=== PATIENT | female | born 1995 | race Caucasian/White ===

== ENCOUNTER 2024-12-01 19:24 | Emergency (ER) | payer SELFPAY ==
[2024-12-01 19:26] VITALS: BP 130/79; PULSE 83; RESP 16; TEMP 36.2; O2SAT 99; BMI 34.4
--- NOTE | 2024-12-01 19:45 | RAD_ITS ---
PROCEDURE: RIGHT ANKLE MIN 3 VIEWS 12/01/2024 REASON FOR EXAM: INJURY/PAIN TECHNIQUE: Procedure Code: RADANK Modality: DX Procedure: ANKLE MIN 3 VIEWS Laterality: Right COMPARISON: None. FINDINGS: No acute fracture or dislocation. Alignment is anatomic. Preserved joint spaces. No aggressive osseous lesion. Soft tissue swelling about the lateral malleolus suggestive of ankle sprain. RAD/Ankle min 3 Views IMPRESSION: No acute fracture or dislocation. Soft tissue swelling over the lateral malleolus suggesting ankle sprain injury. Reading Location: [id number]
--- NOTE | 2024-12-01 20:56 | EX.ED.DYSGE1 ---
HPI History of Present Illness Chief Complaint: Lower Extremity Injury Detail of Chief Complaint: Plantar inversion mechanism injury right ankle Informant: patient Onset/Context/Timing Onset: Hours (Approximately 1 hour prior to presentation) Context: Sudden Onset Timing: Continuous Quality: Pain Location: Lateral right ankle Current Severity: Mild Maximum Severity: Moderate Worsened by: Palpation and weightbearing Relieved by: Nothing Associated Symptoms Associated Symptoms: Difficulty ambulating Narrative Narrative: Patient is a 29-year-old woman who presents with plantar inversion mechanism of her right ankle. She denies paresthesia, anesthesia motors. Denies toe pain or knee pain. She denies prior injury. Prior similar symptoms: No Recent Illness/Hospitalization: No PFSH PFS Medical History Scoliosis Home Medications ?Medication ?Instructions ?Recorded ?Last Taken ?Type naproxen 500 mg tablet 500 mg PO BID #14 tabs 12/01/24 Unknown Rx Allergy/AdvReac Type Severity Reaction Status Date / Time No Known Allergies Allergy Verified 12/01/24 19:27 Family History no significant family his Surgical History History of back surgery Social History Smoking Status: Never smoker ROS ROS ED Musculoskeletal Musculoskeletal: Reports other Details: Per HPI narrative ; Denies arthralgias, back pain, myalgias or neck pain Neurologic Neurologic: Denies paresthesias or weakness Hematologic/Lymphatic Hematologic/Lymphatic: Reports systems reviewed and no addt'l complaints, except as documented EXAM Physical Exam Const Vital Signs: 12/01/24 19:26 Temperature 97.1 F L Temperature Source Temporal Pulse Rate 83 Respiratory Rate 16 Blood Pressure 130/79 H Blood Pressure Mean 96 Pulse Ox 99 Oxygen Delivery Method Room Air Positive well nourished and well developed General Appearance ED: well developed and NAD; Negative for pallor HEENT HEENT Narrative: Head is normocephalic and atraumatic. Eyes PERRL and EOMs intact bilaterally Resp normal respiratory effort Cardio regular rate and regular rhythm Extremity Negative for normal to inspection Extremity Narrative: There is soft tissue swelling noted laterally. There is pain outpatient posterior distal 3 cm. There is no pain ovation of the medial malleolus or calcaneus. There is no laxity with drawer testing. There is no pain ovation of the base of the fifth metatarsal. DP and PT pulse are palpable. Neuro oriented x3 and CN's II-XII intact bilaterally Sensorium / Orientation: alert Psych mental status grossly normal Skin no rashes or lesions noted and skin turgor normal General Skin Exam: Negative for jaundice or pallor MDM MDM MDM Narrative Medical decision making narrative: Per the [place] ankle rule imaging of the ankle is required. Will obtain x-ray to assess for sprain versus fracture. Radiography Chest X-Ray - ED: Read by ED Physician (Three-view x-ray of the ankle reveals soft tissue swelling. There is no evidence of fracture, subluxation dislocation. There is no asymmetry of the mortise or widening of the mortise.) Diagnostic Testing: Clinical Impression(s) from Imaging Studies Ankle X-Ray 12/01/24 19:45 IMPRESSION: No acute fracture or dislocation. Soft tissue swelling over the lateral malleolus suggesting ankle sprain injury. Reading Location: [facility] Treatment and Re-Evaluation :: Treatment ice anti-inflammatories Discharge Plan Triage Chief Complaint: Lower Extremity Injury ED Provider: Sonny Foley Dx/Rx/DC Orders Clinical Impression: Sprain of anterior talofibular ligament of right ankle, Sprain of posterior talofibular ligament of right ankle Instructions: ED Ankle Sprain (Adult) Prescriptions: New naproxen 500 mg tablet 500 mg PO BID Qty: 14 0RF Primary Care Provider: JAVIER BOLES Referrals: JAVIER BOLES, [Primary Care Provider] - 1 Week if not improving Activity Restrictions/Additional Instructions: 1. Draw the alphabet with your ankle 4-6 times a day. 2. Apply ice 6-10 times a day. 3. Take the medication as prescribed for the pain. 4. Wear flat shoes. You should not go up any incline greater than 5 degrees, ladders and no heeled shoes until you are pain-free. Print Language: Indonesian Disposition Disposition: Home, Self Care
[2024-12-01] MEDS: HYDROcodone Bitartrate/Apap 5/325 Tablet PO (21:06)
[2024-12-01 21:07] VITALS: BP 146/75; PULSE 86; RESP 16; TEMP 36.2; O2SAT 100
== END 2024-12-01 21:08 | disposition home or self-care (01) ==
PROVIDERS: Emergency Provider Emergency Medicine; PCP Family Medicine; Visit Provider Emergency Medicine
DX: S93.491A Sprain of other ligament of right ankle, initial encounter (principal); X58.XXXA Exposure to other specified factors, initial encounter
CPT/HCPCS: 73610; 99282